=== PATIENT | male | born 1995 | race African-American/Black ===

== ENCOUNTER 2017-10-27 12:34 | Emergency (ER) | payer MEDICAID ==
[~2017-10-27] VITALS: Ht 177.8 cm; Wt 77.1 kg
[2017-10-27 12:57] VITALS: BP 123/73
--- NOTE | 2017-10-27 13:14 | Emergency Room Report ---
History of Present Illness General Chief Complaint: Sore Throat Source: Patient Present Illness HPI 22 YO Male presents to the ED c/o : sore throat, tonsillar swelling, and nasal congestion x 3 days with associated fevers and chills. Denies cough ear pain, high fevers, lethargy, neck pain/stiffness, irritability, photophobia dehydration, N/V/D. Denies Cp, Palpitations, LOC, AMS, seizures, paresthesias, or changes in Hearing or vision, no Sudden severe HOLGUIN. Denies hx of smoking, asthma or COPD. Allergies: Coded Allergies: No Known Allergies (Unverified , 10/27/17) Patient History Past Medical History: see triage record Past Surgical History: none Pertinent Family History: none Immunizations: UTD Reviewed Nursing Documentation: PMH: Agreed; PSxH: Agreed Nursing Documentation-PMH Past Medical History: No Stated History Review of Systems All Other Systems: negative except mentioned in HPI Physical Exam Vital Signs Date Time Temp Pulse Resp B/P (MAP) Pulse Ox O2 Delivery O2 Flow Rate FiO2 10/27/17 12:57 99.5 82 18 123/73 97 Room Air 99.5 Sp02 EP Interpretation: reviewed, normal General Appearance: no apparent distress, alert, GCS 15, non-toxic Head: normocephalic, atraumatic ENT: hearing grossly normal, normal voice, TMs + canals normal, uvula midline, nasal congestion, tonsillar swelling, tonsillar exudate Neck: full range of motion Respiratory: chest non-tender, lungs clear, normal breath sounds, no respiratory distress, no wheezing, speaking full sentences Cardiovascular #1: regular rate, rhythm Musculoskeletal: back normal, gait/station normal, normal range of motion, non- tender Neurologic: alert, oriented x3, responsive, motor strength/tone normal, sensory intact, normal gait, speech normal, grossly normal Psychiatric: judgement/insight normal Skin: normal color, no rash, warm/dry, well hydrated Lymphatic: no adenopathy Medical Decision Making PA Attestation Dr. Echevarria is my supervising Physician whom patient management has been discussed with. Diagnostic Impression: Primary Impression: Pharyngitis, acute Qualified Codes: J02.0 - Streptococcal pharyngitis ER Course Pt. presents to the ED c/o : sore throat, tonsillar swelling, and nasal congestion x 3 days with associated fevers and chills. Denies cough ear pain, high fevers, lethargy, neck pain/stiffness, irritability, photophobia dehydration, N/V/D. Denies Cp, Palpitations, LOC, AMS, seizures, paresthesias, or changes in Hearing or vision, no Sudden severe HOLGUIN. Denies hx of smoking, asthma or COPD. Ddx considered but are not limited to: pharyngitis, strep, PSYCH RN, ludwigs angina, URI Vital signs: are WNL, pt. is afebrile H&PE are most consistent with: pharyngitis presumed strep. ORDERS: None required at this time as the diagnosis is clinical ED INTERVENTIONS: 8 mg Decadron IM. DISCHARGE: At this time pt. is stable for d/c to home. Will provide printed patient care instructions, and any necessary prescriptions. Care plan and follow up instructions have been discussed with the patient prior to discharge. Last Vital Signs Date Time Temp Pulse Resp B/P (MAP) Pulse Ox O2 Delivery O2 Flow Rate FiO2 10/27/17 12:57 99.5 82 18 123/73 97 Room Air 99.5 Disposition: HOME, SELF-CARE Condition: Stable Scripts Lidocaine HCl 2% Viscous (Lidocaine HCl 2% Viscous) 100 Ml Solution 5 ML ORAL QID, #120 ML Prov: Kimberli Montaño 10/27/17 Ibuprofen* (MOTRIN*) 600 Mg Tablet 600 MG ORAL THREE TIMES A DAY, #20 TAB 0 Refills Prov: Kimberli Montaño 10/27/17 Amoxicillin* (AMOXIL*) 500 Mg Capsule 500 MG ORAL BID for 10 Days, #20 CAP Prov: Kimberli Montaño 10/27/17 Patient Instructions: Strep Throat Additional Instructions: Take medications as directed. Follow up with a Primary Care Provider in 3-5 days, even if your symptoms have resolved. --Please review list of primary care clinics, if you do not already have a primary care provider Return sooner to ED if new symptoms occur, or current symptoms become worse. - Please note that this Emergency Department Report was dictated using [employer] supervisor technology software, occasionally this can lead to erroneous entry secondary to interpretation by the dictation equipment. Kimberli Montaño Oct 27, 2017 13:14
[2017-10-27] MEDS ORDERED: LIDOCAINE VISC100 ML ORAL (13:15)
[2017-10-27] MEDS ORDERED: Dexamethasone 4mg/ml vial IM ONE (13:15)
[2017-10-27] MEDS ORDERED: IBUPROFEN600 MG ORAL (13:15)
[2017-10-27] MEDS ORDERED: AMOXICILLIN500 MG ORAL (13:15)
[2017-10-27 13:29] VITALS: BP 130/78
== END 2017-10-27 13:29 | disposition home or self-care (01) ==
LOC: EMR 12:59
DX: J02.9 Acute pharyngitis, unspecified (principal)
CPT/HCPCS: 96372; 99284; J1100

== ENCOUNTER 2017-11-06 11:52 | Emergency (ER) | payer MEDICAID ==
[~2017-11-06] VITALS: Ht 177.8 cm; Wt 77.1 kg
[~2017-11-06 11:52] MED LIST: AMOXICILLIN500 MG ORAL; IBUPROFEN600 MG ORAL; LIDOCAINE VISC100 ML ORAL
[2017-11-06 12:03] VITALS: BP 119/72
--- NOTE | 2017-11-06 12:38 | Emergency Room Report ---
History of Present Illness General Chief Complaint: Sore Throat Source: Patient Present Illness HPI 22 y.o. M with no sig pmhx here with 2 wks of throat pain. pt was tx with 10 day course of amoxicillin and finished abx 2 days ago, reporting throat pain has not subsided. denies fever/chills, cough, congestion, abdominal pain. pt reports smoking weed daily and having phelgm. pt is concerned about kissing disease as he has been kissing a new partner. pt is a footbal player and plays contact sport. Allergies: Coded Allergies: No Known Allergies (Unverified , 10/27/17) Patient History Past Medical History: see triage record Past Surgical History: none Pertinent Family History: none Immunizations: UTD Reviewed Nursing Documentation: PMH: Agreed; PSxH: Agreed Nursing Documentation-PMH Past Medical History: No Stated History Review of Systems All Other Systems: negative except mentioned in HPI Physical Exam Vital Signs Date Time Temp Pulse Resp B/P (MAP) Pulse Ox O2 Delivery O2 Flow Rate FiO2 11/06/17 11:57 98.3 54 16 119/72 98 Room Air 98.2 Sp02 EP Interpretation: reviewed, normal General Appearance: normal inspection, well appearing, no apparent distress, alert, GCS 15, non-toxic Eyes: bilateral eye normal inspection, bilateral eye PERRL ENT: normal ENT inspection, hearing grossly normal, normal pharynx, no angioedema, normal voice, TMs + canals normal, uvula midline, moist mucus membranes, pharyngeal erythema Neck: thyroid normal, no meningismus, other - posterior lymphadenopathy Respiratory: normal inspection, chest non-tender, lungs clear, normal breath sounds, no rhonchi, no respiratory distress, no retraction, no accessory muscle use Cardiovascular #1: normal inspection, normal peripheral pulses, regular rate, rhythm, no edema, no gallop, no murmur, no rub Cardiovascular #2: 2+ radial (R), 2+ radial (L) Gastrointestinal: normal inspection, normal bowel sounds, non tender, soft Rectal: deferred Genitourinary: deferred Musculoskeletal: normal inspection, back normal Neurologic: normal inspection, alert, oriented x3 Psychiatric: normal inspection, judgement/insight normal Skin: normal inspection, normal color, no rash, warm/dry Lymphatic: adenopathy - posterior cervical Medical Decision Making PA Attestation all pt's orders, diagnosis, tx were reviewed and discussed with my supervising physician Dr. Flores Diagnostic Impression: Primary Impression: Sore throat Additional Impression: Curry exposure ER Course 22 y.o. M with no sig pmhx here with 2 wks of throat pain. pt was tx with 10 day course of amoxicillin and finished abx 2 days ago, reporting throat pain has not subsided. denies fever/chills, cough, congestion, abdominal pain. pt reports smoking weed daily and having phelgm. pt is concerned about kissing disease as he has been kissing a new partner. pt is a footbal player and plays contact sport. Ddx considered but are not limited to mono, strep pharyngitis, URI Vital signs: are WNL, pt. is afebrile H&PE are most consistent with strep throat unresolved ORDERS: monospot, Ibuprofen 200mg qid prn, pt to f/u with pcp, avoid contact sport since pending monospot, oral hydration, can not restart abx as pt just finished 10 day course of abx ED INTERVENTIONS: None required at this time. monospot pending Lab Results Impression monospot pending, pt educated on possible pos monospot Last Vital Signs Date Time Temp Pulse Resp B/P (MAP) Pulse Ox O2 Delivery O2 Flow Rate FiO2 11/06/17 12:03 98.2 54 16 119/72 98 Room Air 98.2 Status: improved Disposition: HOME, SELF-CARE Condition: Stable Scripts Ibuprofen (IBUPROFEN*) 200 Mg Tablet 200 MG ORAL FOUR TIMES A DAY for 7 Days, #28 TAB 0 Refills Prov: Willem Sheldon 11/06/17 Patient Instructions: Sore Throat, Strep Throat, Tonsillitis Additional Instructions: pending Monospot, pt wants to leave, follow up with pcp if throat pain continues. pt explained that can not be given more abx at this time due to finishing a course of abx 2 days ago with no improvement and also told to refrain from contact sport to avoid possible splenic rupture if mono. oral hydration, salt water gargle, take ibuprofen as directed, avoid smoking weed. Willem Sheldon Nov 06, 2017 12:38
[2017-11-06] MEDS ORDERED: IBUPROFEN200 MG ORAL (13:40)
[2017-11-06 13:43] VITALS: BP 117/70
== END 2017-11-06 13:45 | disposition home or self-care (01) ==
LOC: EMR 13:00
DX: J02.9 Acute pharyngitis, unspecified (principal); Z20.89 Contact with and (suspected) exposure to other communicable diseases
CPT/HCPCS: 86308; 99284

== ENCOUNTER 2017-11-08 13:34 | Emergency (ER) | payer MEDICAID ==
[~2017-11-08] VITALS: Ht 177.8 cm; Wt 79.4 kg
[~2017-11-08 13:34] MED LIST changes: +IBUPROFEN200 MG ORAL
--- NOTE | 2017-11-08 14:10 | Emergency Room Report ---
History of Present Illness General Chief Complaint: Sore Throat Source: Patient Present Illness HPI 22-year-old male presents emergency department complaining of some in out of 10 in severity persistent sore throat 2 weeks. Patient reports 2 previous visits here to the ER. Patient states that he initially was prescribed antibiotics for which she finished a 10 day course. Patient presented 2 days ago as well for persistent pain and was discharged pending Monospot results. Patient states that his symptoms is still not improved to denies fevers or chills she reports pain is exacerbated upon swallowing and he describes a burning sensation. Patient denies appreciable rhinorrhea he notes some nasal congestion and states that he coughs up phlegm in the mornings after waking up. Denies history of allergies, recent travel, ill contacts. denies fatigue. Denies CP, Palpitations, LOC, AMS, dizziness, Changes in Vision, Sensation, paresthesias, or a sudden severe headache. Allergies: Coded Allergies: No Known Allergies (Unverified , 10/27/17) Patient History Past Medical History: see triage record Past Surgical History: none Pertinent Family History: none Immunizations: UTD Reviewed Nursing Documentation: PMH: Agreed; PSxH: Agreed Nursing Documentation-PMH Past Medical History: No Stated History Review of Systems All Other Systems: negative except mentioned in HPI Physical Exam Vital Signs Date Time Temp Pulse Resp B/P (MAP) Pulse Ox O2 Delivery O2 Flow Rate FiO2 11/08/17 13:37 98.4 67 22 135/74 99 Room Air 98.4 Sp02 EP Interpretation: reviewed, normal General Appearance: no apparent distress, alert, GCS 15, non-toxic Head: normocephalic, atraumatic Eyes: bilateral eye normal inspection, bilateral eye PERRL ENT: hearing grossly normal, normal voice, uvula midline, moist mucus membranes , nasal congestion, pharyngeal erythema, other - cob[place] appearance, no exudates, no petechiae Neck: full range of motion Respiratory: chest non-tender, lungs clear, normal breath sounds, speaking full sentences Cardiovascular #1: regular rate, rhythm Musculoskeletal: back normal, gait/station normal, normal range of motion Neurologic: alert, oriented x3, responsive, motor strength/tone normal, sensory intact, normal gait, speech normal, grossly normal Psychiatric: judgement/insight normal Skin: normal color, no rash, warm/dry, well hydrated Lymphatic: no adenopathy Medical Decision Making PA Attestation Dr. Echevarria is my supervising Physician whom patient management has been discussed with. Diagnostic Impression: Primary Impression: Sore throat Additional Impression: Post-nasal drainage ER Course 22-year-old male presents emergency department complaining of some in out of 10 in severity persistent sore throat 2 weeks. Patient reports 2 previous visits here to the ER. Patient states that he initially was prescribed antibiotics for which she finished a 10 day course. Patient presented 2 days ago as well for persistent pain and was discharged pending Monospot results. Patient states that his symptoms is still not improved to denies fevers or chills she reports pain is exacerbated upon swallowing and he describes a burning sensation. Patient denies appreciable rhinorrhea he notes some nasal congestion and states that he coughs up phlegm in the mornings after waking up. Denies history of allergies, recent travel, ill contacts. denies fatigue. Denies CP, Palpitations, LOC, AMS, dizziness, Changes in Vision, Sensation, paresthesias, or a sudden severe headache. Ddx considered but are not limited to: pharyngitis, strep, CUSTOMER RELATIONS REPRESENTATIVE, ludwigs angina, URI Vital signs: are WNL, pt. is afebrile H&PE are most consistent with: pharyngitis post nasal ORDERS: None required at this time as the diagnosis is clinical ED INTERVENTIONS: -Lidocaine Viscous 2% DISCHARGE: At this time pt. is stable for d/c to home. Will provide printed patient care instructions, and any necessary prescriptions. Care plan and follow up instructions have been discussed with the patient prior to discharge. Last Vital Signs Date Time Temp Pulse Resp B/P (MAP) Pulse Ox O2 Delivery O2 Flow Rate FiO2 11/08/17 13:37 98.4 67 22 135/74 99 Room Air 98.4 Disposition: HOME, SELF-CARE Condition: Stable Scripts Cetirizine Hcl/Pseudoephedrine (ZYRTEC-D TABLET) 1 Each Tab.er.12h 1 EACH ORAL Q12HR for 10 Days, #20 TAB Prov: Kimberli Montaño 11/08/17 Lidocaine HCl 2% Viscous (Lidocaine HCl 2% Viscous) 100 Ml Solution 15 ML ORAL QID, #200 ML Prov: Kimberli Montaño 11/08/17 Patient Instructions: Sore Throat Additional Instructions: Take medications as directed. Follow up with a Primary Care Provider in 3-5 days, even if your symptoms have resolved. --Please review list of primary care clinics, if you do not already have a primary care provider. You can recieve an ENT Specialist by PCP providers if your symptoms continue. Return sooner to ED if new symptoms occur, or current symptoms become worse. - Please note that this Emergency Department Report was dictated using [employer] team lead technology software, occasionally this can lead to erroneous entry secondary to interpretation by the dictation equipment. Kimberli Montaño Nov 08, 2017 14:10
[2017-11-08 14:45] VITALS: BP 135/74
[2017-11-08] MEDS ORDERED: Lidocaine 2% Visc 15ml soln ORAL ONE (14:45)
[2017-11-08 15:00] VITALS: BP 135/74
[2017-11-08] MEDS ORDERED: ZYRTEC-D TABLE1 EACH ORAL (15:01)
[2017-11-08] MEDS ORDERED: LIDOCAINE VISC100 ML ORAL (15:01)
== END 2017-11-08 15:00 | disposition home or self-care (01) ==
LOC: EMR 14:09
DX: J02.9 Acute pharyngitis, unspecified (principal); R09.82 Postnasal drip
CPT/HCPCS: 99284